=== PATIENT | male | born 1980 | race Caucasian/White ===

== ENCOUNTER 2017-01-05 11:40 | Emergency (ER) | payer OTHER | END 2017-01-05 14:21 | disposition home or self-care (01) | LOC: ER 11:40 | DX: S06.0X0A Concussion without loss of consciousness, initial encounter (principal); S16.1XXA Strain of muscle, fascia and tendon at neck level, initial encounter; W10.9XXA Fall (on) (from) unspecified stairs and steps, initial encounter; Y92.008 Other place in unspecified non-institutional (private) residence as the place of occurrence of the external cause; Z76.0 Encounter for issue of repeat prescription; G40.309 Generalized idiopathic epilepsy and epileptic syndromes, not intractable, without status epilepticus; M47.892 Other spondylosis, cervical region; F17.210 Nicotine dependence, cigarettes, uncomplicated | CPT/HCPCS: 70450; 72125 ==